=== PATIENT | female | born 1980 | race Asian ===

== ENCOUNTER 2020-02-15 11:57 | Emergency (ER) | payer OTHER ==
[~2020-02-15] VITALS: Ht 157.5 cm; Wt 44.5 kg
[2020-02-15 12:13] VITALS: BP 151/101
== END 2020-02-15 13:05 | disposition left against medical advice (07) ==
LOC: EMS 12:00
DX: R00.2 Palpitations (principal); Z53.21 Procedure and treatment not carried out due to patient leaving prior to being seen by health care provider
CPT/HCPCS: 93005